=== PATIENT | female | born 1990 | race Caucasian/White ===

== ENCOUNTER → 2016-04-19 | Outpatient (CLI) | payer BC, OTHER ==
[2016-04-19 17:26] LABS: CHLORIDE,CL 106 mmol/L (98-110); SODIUM,NA 138 mmol/L (136-146)
== END ==
LOC: MW.CHRC 16:41
PROVIDERS: ATTEND Family Medicine
DX: K21.9 Gastro-esophageal reflux disease without esophagitis (principal); R14.0 Abdominal distension (gaseous)
CPT/HCPCS: 36415; 80053; 82150; 83690; 84443; 84703; 85025; 85652; 86140

== ENCOUNTER → 2016-05-02 | Outpatient (CLI) | payer BC, OTHER | LOC: MW.CHRC 14:22 | PROVIDERS: ATTEND Family Medicine | DX: N91.2 Amenorrhea, unspecified (principal) | CPT/HCPCS: 81025 ==

== ENCOUNTER → 2016-05-08 | Outpatient (CLI) | payer BC, OTHER ==
--- NOTE | 2016-05-08 16:36 | CT ---
CT of the abdomen and pelvis without contrast. HISTORY: Pain TECHNIQUE: Axial CT images were obtained of the abdomen and pelvis without contrast. Coronal and sag ittal reconstructions obtained. FINDINGS: The lung bases are clear, no pleural effusion. Tiny subpleural nodules noted bilaterally. There is a 1.3 cm hypodensity near the dome of the liver, likely representing a hemangioma comparing to a study dated 09/15/2015. The Spleen, adrenal glands, and pancreas appear unremarkable for noncont rast examination. The gallbladder is decompressed. There is no bulky retroperitoneal lymphadenopathy . No abdominal ascites. There are no calcifications noted within the kidneys or along the courses of the ureters bilaterally . The large and small bowel are normal in caliber without evidence of obstruction. The appendix appear s normal. There is no bulky pelvic lymphadenopathy. No free fluid. No free air. The urinary bladder appears normal. The visualized osseous structures appear normal. IMPRESSION: 1. No acute findings within the abdomen or pelvis. 2. Probable small hemangioma within the dome of the liver.
== END ==
LOC: MW.DI 15:01
PROVIDERS: ATTEND Family Medicine
DX: N91.2 Amenorrhea, unspecified (principal)
CPT/HCPCS: 74176; 74176-26

== ENCOUNTER 2017-10-10 18:23 | Emergency (ER) | payer BC, OTHER ==
[2017-10-10] MEDS ORDERED: Sodium Chloride 0.9% 1,000 ML IV ONE (19:03)
[2017-10-10] MEDS ORDERED: Ondansetron 4 MG/2 ML SDV IVPUSH ONE (19:04)
[2017-10-10] MEDS ORDERED: Sodium Chloride 0.9% 2.5 ML Syringe FLUSH PRN (19:04)
[2017-10-10] MEDS ORDERED: Sodium Chloride 0.9% 10 ML Syringe FLUSH PRN (19:04)
[2017-10-10] MEDS ORDERED: Ketorolac 30 MG/ML SDV IVPUSH ONE (19:04)
--- NOTE | 2017-10-10 19:13 | EDM.PDOC ---
ED HPI GENERAL MEDICAL PROBLEM - General Chief Complaint: Headache Stated Complaint: PT HAS MIGRAINE Time Seen by Provider: 10/10/17 19:09 Source of Information: Reports: Patient History Limitations: Reports: No Limitations - History of Present Illness INITIAL COMMENTS - FREE TEXT/NARRATIVE: HISTORY AND PHYSICAL: History of present illness: Patient is a 27-year-old female here with complaint of a migraine. Patient states that she had a headache yesterday and it was the end of the day progressed into severe migraine. Ports that she took a sumatriptan at 10 PM and then 2 more today without relief of her headache. She does have a history of migraines which have been progressively more frequent in the last 6 months. He sees Michela Keith at [facility]. She reports that she is very nauseous and light and noise really bothering her. She reports even small movements will make her headache worse. She denies any vomiting, fevers, chills, abdominal pain, weakness, chest pain, shortness of breath. Patients rates her pain as 10/10. Review of systems: As per history of present illness and below otherwise all systems reviewed and negative. Past medical history: As per history of present illness and as reviewed below otherwise noncontributory. Surgical history: As per history of present illness and as reviewed below otherwise noncontributory. Social history: No reported history of drug or alcohol abuse. Family history: As per history of present illness and as reviewed below otherwise noncontributory. Physical exam: General: Patient sitting comfortably in no acute distress and nontoxic appearing. Room is darkened and patient is wearing her sunglasses. HEENT: Atraumatic, normocephalic, pupils reactive, negative for conjunctival pallor or scleral icterus, mucous membranes moist, throat clear, neck supple, nontender, trachea midline. No meningeal signs. Lungs: Clear to auscultation, breath sounds equal bilaterally, chest nontender. Heart: S1S2, regular, negative for clicks, rubs, or overt murmur. Extremities: Atraumatic, negative for cords or calf pain. Neurovascular unremarkable. Neuro: Awake, alert, oriented. Cranial nerves II through XII unremarkable. Cerebellum unremarkable. Motor and sensory unremarkable throughout. Exam nonfocal. Notes: 1930 - patient rates her pain 3-4/10. 1999 - patient states her headache is a 3/10 and is comfortable to go home. Diagnostics: None Therapeutics: 1 L normal saline IV 30 mg Toradol IV 1 mg Zofran IV Prescriptions: Impression: Migraine Plan: 1. Drink plenty of fluids and take motrin or tylenol as needed. 2. Follow up with your primary care provider. 3. Return to ED as needed as discussed. Definitive disposition and diagnosis as appropriate pending reevaluation and review of above. 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 - Physical Exam Exam: See Below (see dictation) Course - Vital Signs Last Recorded V/S: Last Vital Signs Temp 36.4 C 10/10/17 18:23 Pulse 81 10/10/17 18:23 Resp 18 10/10/17 18:23 BP 102/55 L 10/10/17 18:23 Pulse Ox 98 10/10/17 18:23 - Orders/Labs/Meds Orders: Active Orders 24 hr Category Date Time Status Sodium Chloride 0.9% [Normal Saline] 1,000 ml Med 10/10/17 19:03 Active IV STAT Sodium Chloride 0.9% [Saline Flush] Med 10/10/17 19:04 Active 10 ml FLUSH ASDIRECTED PRN Sodium Chloride 0.9% [Saline Flush] Med 10/10/17 19:04 Active 2.5 ml FLUSH ASDIRECTED PRN Saline Lock Insert [OM.PC] Stat Oth 10/10/17 19:03 Ordered Medication Orders Sodium Chloride (Normal Saline) 1,000 mls @ 999 mls/hr IV STAT ONE Stop: 10/10/17 20:03 Last Admin: 10/10/17 19:16 Dose: 999 mls/hr Sodium Chloride (Saline Flush) 10 ml FLUSH ASDIRECTED PRN PRN Reason: Keep Vein Open Sodium Chloride (Saline Flush) 2.5 ml FLUSH ASDIRECTED PRN PRN Reason: Keep Vein Open Meds: Medications Generic Name Dose Route Start Last Admin Trade Name Freq PRN Reason Stop Dose Admin Sodium Chloride 1,000 mls @ 999 mls/hr 10/10/17 19:03 10/10/17 19:16 Normal Saline IV 10/10/17 20:03 999 mls/hr STAT ONE Administration Sodium Chloride 10 ml 10/10/17 19:04 Saline Flush FLUSH ASDIRECTED PRN Keep Vein Open Sodium Chloride 2.5 ml 10/10/17 19:04 Saline Flush FLUSH ASDIRECTED PRN Keep Vein Open Discontinued Medications Generic Name Dose Route Start Last Admin Trade Name Freq PRN Reason Stop Dose Admin Ketorolac Tromethamine 30 mg 10/10/17 19:04 10/10/17 19:16 Toradol IVPUSH 10/10/17 19:05 30 mg ONETIME ONE Administration Ondansetron HCl 4 mg 10/10/17 19:04 10/10/17 19:16 Zofran IVPUSH 10/10/17 19:05 4 mg ONETIME ONE Administration Departure - Departure Time of Disposition: 19:59 Disposition: Home, Self-Care 01 Condition: Good Clinical Impression: Migraine - Discharge Information Referrals: PCP,None [Primary Care Provider] - Forms: ED Department Discharge Additional Instructions: The following information is given to patients seen in the emergency department who are being discharged to home. This information is to outline your options for follow-up care. We provide all patients seen in our emergency department with a follow-up referral. The need for follow-up, as well as the timing and circumstances, are variable depending upon the specifics of your emergency department visit. If you don't have a primary care physician on staff, we will provide you with a referral. We always advise you to contact your personal physician following an emergency department visit to inform them of the circumstance of the visit and for follow-up with them and/or the need for any referrals to a consulting specialist. The emergency department will also refer you to a specialist when appropriate. This referral assures that you have the opportunity for follow-up care with a specialist. All of these measure are taken in an effort to provide you with optimal care, which includes your follow-up. Under all circumstances we always encourage you to contact your private physician who remains a resource for coordinating your care. When calling for follow-up care, please make the office aware that this follow-up is from your recent emergency room visit. If for any reason you are refused follow-up, please contact the [facility] Emergency Department at and asked to speak to the emergency department charge nurse. [address] [address] 1. Drink plenty of fluids and take motrin or tylenol as needed. 2. Follow up with your primary care provider. 3. Return to ED as needed as discussed. - My Orders Last 24 Hours: My Active Orders 10/10/17 19:03 Sodium Chloride 0.9% [Normal Saline] 1,000 ml IV STAT Saline Lock Insert [OM.PC] Stat 10/10/17 19:04 Sodium Chloride 0.9% [Saline Flush] 10 ml FLUSH ASDIRECTED PRN Sodium Chloride 0.9% [Saline Flush] 2.5 ml FLUSH ASDIRECTED PRN - Assessment/Plan Last 24 Hours: My Active Orders 10/10/17 19:03 Sodium Chloride 0.9% [Normal Saline] 1,000 ml IV STAT Saline Lock Insert [OM.PC] Stat 10/10/17 19:04 Sodium Chloride 0.9% [Saline Flush] 10 ml FLUSH ASDIRECTED PRN Sodium Chloride 0.9% [Saline Flush] 2.5 ml FLUSH ASDIRECTED PRN
[2017-10-10 20:08] VITALS: BP 104/68
== END 2017-10-10 20:09 | disposition home or self-care (01) ==
LOC: MW.ED 18:23
DX: G43.909 Migraine, unspecified, not intractable, without status migrainosus (principal)
CPT/HCPCS: 96361; 96374; 96375; 99283; J1885; J2405; J7040

== ENCOUNTER 2018-07-20 09:10 | Emergency (ER) | payer SELFPAY ==
[2018-07-20] MEDS ORDERED: Sodium Chloride 0.9% 10 ML Syringe FLUSH PRN (09:38)
[2018-07-20] MEDS ORDERED: Sodium Chloride 0.9% 2.5 ML Syringe FLUSH PRN (09:38)
[2018-07-20] MEDS ORDERED: Sodium Chloride 0.9% 1,000 ML IV ONE (09:40)
[2018-07-20] MEDS ORDERED: Ketorolac 30 MG/ML SDV IVPUSH ONE (09:59)
[2018-07-20 10:29] LABS: CHLORIDE,CL 104 mmol/L (98-107); SODIUM,NA 137 mmol/L (136-145)
--- NOTE | 2018-07-20 10:57 | EDM.PDOC ---
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 She states she feels physically and emotionally exhausted. Patient has had a similar episode when she was 13 years old and needed multiple blood transfusions. She did have a miscarriage in January and feels that her more hormones have been off since. Review of systems: As per history of present illness and below otherwise all systems reviewed and negative. Past medical history: As per history of present illness and as reviewed below otherwise noncontributory. Surgical history: As per history of present illness and as reviewed below otherwise noncontributory. Social history: No reported history of drug or alcohol abuse. Family history: As per history of present illness and as reviewed below otherwise noncontributory. Physical exam: General: Well developed, well nourished in NAD HEENT: Atraumatic, normocephalic, pupils reactive, negative for conjunctival pallor or scleral icterus, mucous membranes moist, throat clear, neck supple, nontender, trachea midline. Lungs: Clear to auscultation, breath sounds equal bilaterally, chest nontender. Heart: S1S2, regular, negative for clicks, rubs, or JVD. Abdomen: NABS, Soft, nondistended, nontender. Negative for masses or hepatosplenomegaly. Negative for costovertebral tenderness. Pelvis: Stable nontender. Genitourinary: Pelvic exam shows minimal blood in the vaginal vault no blood clot located in the cervical os and nontender Rectal: Deferred. Extremities: Atraumatic, negative for cords or calf pain. Neurovascular unremarkable. Neuro: Awake, alert, oriented. Cranial nerves II through XII unremarkable. Cerebellum unremarkable. Motor and sensory unremarkable throughout. Exam nonfocal. Skin:warm and dry Diagnostics: CBC, chemistry, test negative Therapeutics: Dehydrated ED Course: Stable Impression: Dysfunctional uterine bleeding Prescriptions: None Plan: Follow-up with women's health Definitive disposition and diagnosis as appropriate pending reevaluation and review of above. 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: Reports: Endometriosis, , Spontaneous Musculoskeletal History: Reports: Fracture Other Musculoskeletal History: hx fx arm as a child Neurological History: Reports: Migraines Psychiatric History: Reports: Anxiety, Depression Hematologic History: Reports: Anemia, Blood Transfusion(s) - Infectious Disease History Infectious Disease History: Reports: Chicken Pox - Past Surgical History Female Surgical History: Reports: Section, D&C Social & Family History - Family History Family Medical History: Noncontributory - Tobacco Use Smoking Status *Q: Light Tobacco Smoker Years of Tobacco use: 15 Packs/Tins Daily: 0.1 - Caffeine Use Caffeine Use: Reports: None - Recreational Drug Use Recreational Drug Use: No ED ROS GENERAL - Review of Systems Review Of Systems: See Below ED EXAM, RENAL/ - Physical Exam Exam: See Below Course - Vital Signs Last Recorded V/S: Last Vital Signs Temp 97.4 F 07/20/18 09:16 Pulse 98 07/20/18 09:16 Resp 16 07/20/18 09:16 BP 111/65 07/20/18 09:16 Pulse Ox 97 07/20/18 09:16 - Orders/Labs/Meds Orders: Active Orders 24 hr Category Date Time Status EKG Documentation Completion [RC] STAT Care 07/20/18 09:38 Inactive TYPE AND SCREEN [BBK] Stat Lab 07/20/18 10:05 Received Sodium Chloride 0.9% [Saline Flush] Med 07/20/18 09:38 Active 10 ml FLUSH ASDIRECTED PRN Sodium Chloride 0.9% [Saline Flush] Med 07/20/18 09:38 Active 2.5 ml FLUSH ASDIRECTED PRN Saline Lock Insert [OM.PC] Stat Oth 07/20/18 09:38 Ordered Medication Orders Sodium Chloride (Saline Flush) 10 ml FLUSH ASDIRECTED PRN PRN Reason: Keep Vein Open Last Admin: 07/20/18 09:52 Dose: 10 ml Sodium Chloride (Saline Flush) 2.5 ml FLUSH ASDIRECTED PRN PRN Reason: Keep Vein Open Last Admin: 07/20/18 09:52 Dose: 2.5 ml Labs: Laboratory Tests 07/20/18 07/20/18 07/20/18 Range/Units 09:50 09:50 09:50 WBC 9.24 (4.0-11.0) K/uL RBC 4.11 L (4.30-5.90) M/uL Hgb 12.1 (12.0-16.0) g/dL Hct 36.0 (36.0-46.0) % MCV 87.6 (80.0-98.0) fL MCH 29.4 (27.0-32.0) pg MCHC 33.6 (31.0-37.0) g/dL RDW Std Deviation 39.2 (28.0-62.0) fl RDW Coeff of Ashli 12 (11.0-15.0) % Plt Count 229 (150-400) K/uL MPV 10.80 (7.40-12.00) fL Neut % (Auto) 61.5 (48.0-80.0) % Lymph % (Auto) 27.6 (16.0-40.0) % [place] % (Auto) 9.7 (0.0-15.0) % Eos % (Auto) 0.9 (0.0-7.0) % Baso % (Auto) 0.3 (0.0-1.5) % Neut # (Auto) 5.7 (1.4-5.7) K/uL Lymph # (Auto) 2.6 H (0.6-2.4) K/uL [place] # (Auto) 0.9 H (0.0-0.8) K/uL Eos # (Auto) 0.1 (0.0-0.7) K/uL Baso # (Auto) 0.0 (0.0-0.1) K/uL Nucleated RBC % 0.0 /100WBC Nucleated RBCs # 0 K/uL Sodium 137 (136-145) mmol/L Potassium 3.6 (3.5-5.1) mmol/L Chloride 104 (98-107) mmol/L Carbon Dioxide 25.6 (21.0-32.0) mmol/L BUN 7 (7.0-18.0) mg/dL Creatinine 0.7 (0.6-1.0) mg/dL Est Cr Clr Drug Dosing 105.74 mL/min Estimated GFR (MDRD) > 60.0 ml/min Glucose 105 (74-106) mg/dL Calcium 8.6 (8.5-10.1) mg/dL Total Bilirubin 0.5 (0.2-1.0) mg/dL AST 16 (15-37) IU/L ALT 51 (14-63) IU/L Alkaline Phosphatase 46 (46-116) U/L Total Protein 6.8 (6.4-8.2) g/dL Albumin 3.9 (3.4-5.0) g/dL Globulin 2.9 (2.6-4.0) g/dL Albumin/Globulin Ratio 1.3 (0.9-1.6) HCG, Qual NEGATIVE (NEG) Meds: Medications Generic Name Dose Route Start Last Admin Trade Name Freq PRN Reason Stop Dose Admin Sodium Chloride 10 ml 07/20/18 09:38 07/20/18 09:52 Saline Flush FLUSH 10 ml ASDIRECTED PRN Administration Keep Vein Open Sodium Chloride 2.5 ml 07/20/18 09:38 07/20/18 09:52 Saline Flush FLUSH 2.5 ml ASDIRECTED PRN Administration Keep Vein Open Discontinued Medications Generic Name Dose Route Start Last Admin Trade Name Freq PRN Reason Stop Dose Admin Sodium Chloride 1,000 mls @ 999 mls/hr 07/20/18 09:40 07/20/18 09:52 Normal Saline IV 07/20/18 10:40 999 mls/hr .Bolus ONE Administration Ketorolac Tromethamine 30 mg 07/20/18 09:59 07/20/18 10:14 Toradol IVPUSH 07/20/18 10:00 30 mg ONETIME ONE Administration Departure - Departure Time of Disposition: 10:56 Disposition: Home, Self-Care 01 Condition: Good Clinical Impression: Dysfunctional uterine bleeding Clinical Impression: (Ruled Out): Dysfunctional or functional uterine hemorrhage - Discharge Information *PRESCRIPTION DRUG MONITORING PROGRAM REVIEWED*: No *COPY OF PRESCRIPTION DRUG MONITORING REPORT IN PATIENT MAIA: No Referrals: PCP,None [Primary Care Provider] - Additional Instructions: The following information is given to patients seen in the emergency department who are being discharged to home. This information is to outline your options for follow-up care. We provide all patients seen in our emergency department with a follow-up referral. The need for follow-up, as well as the timing and circumstances, are variable depending upon the specifics of your emergency department visit. If you don't have a primary care physician on staff, we will provide you with a referral. We always advise you to contact your personal physician following an emergency department visit to inform them of the circumstance of the visit and for follow-up with them and/or the need for any referrals to a consulting specialist. The emergency department will also refer you to a specialist when appropriate. This referral assures that you have the opportunity for follow-up care with a specialist. All of these measure are taken in an effort to provide you with optimal care, which includes your follow-up. Under all circumstances we always encourage you to contact your private physician who remains a resource for coordinating your care. When calling for follow-up care, please make the office aware that this follow-up is from your recent emergency room visit. If for any reason you are refused follow-up, please contact the [facility] Emergency Department at and asked to speak to the emergency department charge nurse. [facility] - [facility] [address] [place] [phone] - My Orders Last 24 Hours: My Active Orders 07/20/18 09:38 EKG Documentation Completion [RC] STAT Sodium Chloride 0.9% [Saline Flush] 10 ml FLUSH ASDIRECTED PRN Sodium Chloride 0.9% [Saline Flush] 2.5 ml FLUSH ASDIRECTED PRN Saline Lock Insert [OM.PC] Stat 07/20/18 10:05 TYPE AND SCREEN [BBK] Stat - Assessment/Plan Last 24 Hours: My Active Orders 07/20/18 09:38 EKG Documentation Completion [RC] STAT Sodium Chloride 0.9% [Saline Flush] 10 ml FLUSH ASDIRECTED PRN Sodium Chloride 0.9% [Saline Flush] 2.5 ml FLUSH ASDIRECTED PRN Saline Lock Insert [OM.PC] Stat 07/20/18 10:05 TYPE AND SCREEN [BBK] Stat
[2018-07-20 12:15] VITALS: BP 121/72
== END 2018-07-20 11:09 | disposition home or self-care (01) ==
LOC: MW.ED 09:10
DX: N93.8 Other specified abnormal uterine and vaginal bleeding (principal); F41.9 Anxiety disorder, unspecified; F32.9 Major depressive disorder, single episode, unspecified; F17.210 Nicotine dependence, cigarettes, uncomplicated; Z79.899 Other long term (current) drug therapy
CPT/HCPCS: 80053; 84703; 85025; 86850; 86900; 86901; 96361; 96374; 99284; J1885; J7040

== ENCOUNTER 2020-01-16 06:13 | Emergency (ER) | payer BC, OTHER ==
[2020-01-16] MEDS ORDERED: Orphenadrine 60 MG/2 ML Inj IM ONE (06:33)
[2020-01-16] MEDS ORDERED: Ketorolac 30 MG/ML SDV IM ONE (06:33)
[2020-01-16] MEDS ORDERED: traMADol 50 MG Tab PO ONE (06:34)
--- NOTE | 2020-01-16 06:46 | EDM.PDOC ---
ED HPI GENERAL MEDICAL PROBLEM - General Chief Complaint: Upper Extremity Injury/Pain Stated Complaint: RT SHOULDER HURTS Time Seen by Provider: 01/16/20 06:30 - History of Present Illness INITIAL COMMENTS - FREE TEXT/NARRATIVE: HISTORY AND PHYSICAL: History of present illness: This is a 29-year-old female who presents ER today complaining of pain to her right shoulder, right shoulder blade, radiating down her right arm that started around 3 in the morning when she woke up. Patient reports no recent trauma or fall. Patient denies any weakness or numbness to her hand. Patient denies any recent fevers, shakes, chills, nausea, vomiting, diarrhea, dysuria, frequency, urgency. Patient reports that she when she went to sleep last night she was not having any discomfort. Patient denies any shortness of breath or sharp chest pain. Patient denies any calf pain or tenderness. Patient denies any lower extremity swelling. Patient denies any hormonal use. Patient denies any history of DVT/PE. Patient reports the pain increases with any movement of her arm and shoulder. Patient denies any history of hypertension, diabetes, liver, lung, kidney problems. Patient reports that she has had D&C in the past. Patient has any tobacco, alcohol, drug use. Patient has no known drug allergies. Patient reports she has no history of fibromyalgia. Review of systems: As per history of present illness and below otherwise all systems reviewed and negative. Past medical history: As per history of present illness and as reviewed below otherwise noncontributory. Surgical history: As per history of present illness and as reviewed below otherwise noncontributory. Social history: No reported history of drug or alcohol abuse. Family history: As per history of present illness and as reviewed below otherwise noncontri butory. Physical exam: Constitutional: Patient is oriented to person, place, and time. Appears well- developed and well-nourished. No distress. HEENT: Moist mucous membranes Head: Normocephalic and atraumatic Eyes: Right eye exhibits no discharge. Left eye exhibits no discharge. No scleral icterus Neck: Normal range of motion. No tracheal deviation present. Cardiovascular: Normal rate and regular rhythm. Pulmonary: Effort normal, no respiratory distress. Abdominal: No distention Musculoskeletal: Normal range of motion Neurologic: Alert and oriented to person, place and time. Skin: [place], warm and dry. Psychiatric: Normal mood and affect. Behavior is normal. Judgment and thought content normal. Nursing note and vital signs have been reviewed Patient's ER physical exam is significant for tenderness to palpation to her right shoulder with any slight range of motion to her shoulder. Patient has pain to palpation at the scapula and on palpation of the muscles around the scapula she does have a lot of tenderness and spasms in the muscles. Patient is neurovascularly intact. Patient has 5 out of 5 motor in her upper extremities bilaterally. Patient has good sensation. Patient's pulses are bounding and equal bilaterally. Patient has excellent capillary refill. Patient has no evidence of arterial clot or vascular insufficiency on exam. Diagnostics: X-ray of right shoulder: No acute fracture or dislocation identified as interpreted by ER physician Dr. [employer]: Norflex IM, Toradol IM, Ultram p.o. Assessment and plan: This is a 29-year-old female with no significant past medical history presents ER today complaining of right shoulder pain that woke her from sleep. Patient reports she has significant pain with range of motion of her right shoulder. Pain appears to be musculoskeletal/mechanical in nature. Pain does not appear to be consistent with PE. Patient will be given Norflex, Toradol, Ultram in the ED and will be discharged home with a prescription for Flexeril, ibuprofen, Ultram to assist her with her pain. Reports that she will call her to come pick her up. Reassessment at the time of disposition demonstrates that the patient is in no acute distress. The patient has remained stable throughout the entire ED visit and is without objective evidence for acute process requiring urgent intervention or hospitalization. The patient is stable for discharge, counseling is provided as documented above, discussed symptomatic treatment and specific conditions for return. I have spoken with the patient/caregiver and discussed todays findings, in addition to providing specific details for the plan of care. Questions are answered and there is agreement with the plan. Definitive disposition and diagnosis as appropriate pending reevaluation and review of above. 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: Reports: Endometriosis, , Spontaneous Musculoskeletal History: Reports: Fracture, Other (See Below) Other Musculoskeletal History: hx fx arm as a child, left shoulder rotator cuff problems Neurological History: Reports: Migraines Psychiatric History: Reports: Anxiety, Depression Hematologic History: Reports: Anemia, Blood Transfusion(s) - Infectious Disease History Infectious Disease History: Reports: Chicken Pox - Past Surgical History Head Surgeries/Procedures: Reports: None HEENT Surgical History: Reports: Tonsillectomy Female Surgical History: Reports: Section, D&C Other Female Surgeries/Procedures: Miscarriage in 2008 and 2017 Social & Family History - Family History Family Medical History: No Pertinent Family History - Tobacco Use Tobacco Use Status *Q: Never Tobacco User Second Hand Smoke Exposure: No - Caffeine Use Caffeine Use: Reports: None - Recreational Drug Use Recreational Drug Use: No Review of Systems - Review of Systems Review Of Systems: See Below ED EXAM, GENERAL - Physical Exam Exam: See Below Course - Vital Signs Last Recorded V/S: Last Vital Signs Temp 97.3 F 01/16/20 07:41 Pulse 65 01/16/20 07:41 Resp 16 01/16/20 07:41 BP 103/31 L 01/16/20 07:41 Pulse Ox 100 01/16/20 07:41 - Orders/Labs/Meds Meds: Medications Discontinued Medications Generic Name Dose Route Start Last Admin Trade Name Freq PRN Reason Stop Dose Admin Ketorolac Tromethamine 30 mg 01/16/20 06:33 01/16/20 06:56 Toradol IM 01/16/20 06:34 30 mg ONETIME ONE Administration Orphenadrine Citrate 60 mg 01/16/20 06:33 01/16/20 06:56 Norflex IM 01/16/20 06:34 60 mg ONETIME ONE Administration Tramadol HCl 50 mg 01/16/20 06:34 01/16/20 06:54 Ultram PO 01/16/20 06:35 50 mg ONETIME ONE Administration Departure - Departure Time of Disposition: 06:46 Disposition: Home, Self-Care 01 Condition: Good Clinical Impression: Right shoulder pain - Discharge Information Prescriptions: Cyclobenzaprine [Flexeril] 10 mg PO TID PRN #20 tab PRN Reason: Muscle Spasm Ibuprofen 600 mg PO Q6HR PRN #30 tablet PRN Reason: Pain traMADol [Ultram] 50 mg PO Q6H PRN #12 tab PRN Reason: Pain Instructions: Shoulder Pain Referrals: PCP,None [Primary Care Provider] - Forms: ED Department Discharge Additional Instructions: You were seen and evaluated in the ER today secondary to pain in your right shoulder. The pain appears to be musculoskeletal in nature. You have been given an injection of Toradol and Norflex in the ED as well as a Ultram pill to help you with your pain and discomfort. You will be discharged home with a prescription for: Flexeril (which is a muscle relaxant) 10 mg to take every 8 hours as needed for pain and muscle spasms. Ibuprofen (which is an anti-inflammatory medication) 600 mg to take every 6-8 hours as needed for pain. Ultram (which is the pain medicine) 50 mg to take every 6 hours as needed for pain. Please continue using your right arm sling to help you with pain and discomfort. If your pain persists for more than 1 to 2 days please see your family doctor or call her orthopedic doctor for appointment for follow-up. [facility] - [facility] [address], [address] [place] [address] The following information is given to patients seen in the emergency department who are being discharged to home. This information is to outline your options for follow-up care. We provide all patients seen in our emergency department with a follow-up referral. The need for follow-up, as well as the timing and circumstances, are variable depending upon the specifics of your emergency department visit. If you don't have a primary care physician on staff, we will provide you with a referral. We always advise you to contact your personal physician following an emergency department visit to inform them of the circumstance of the visit and for follow-up with them and/or the need for any referrals to a consulting specialist. The emergency department will also refer you to a specialist when appropriate. This referral assures that you have the opportunity for follow-up care with a specialist. All of these measure are taken in an effort to provide you with optimal care, which includes your follow-up. Under all circumstances we always encourage you to contact your private physician who remains a resource for coordinating your care. When calling for follow-up care, please make the office aware that this follow-up is from your recent emergency room visit. If for any reason you are refused follow-up, please contact the [facility] Emergency Department at and asked to speak to the emergency department charge nurse. [facility] [address] [place] [id number] [facility] [address] [place] [id number] Sepsis Event Note (ED) - Evaluation Sepsis Screening Result: No Definite Risk
--- NOTE | 2020-01-16 07:24 | CR ---
INDICATION: Right shoulder pain COMPARISON: none TECHNIQUE: Three-view right shoulder FINDINGS: The AC joint and glenohumeral joint are anatomically aligned. There is no evidence of fracture, erosion or intrinsic bone lesion. The soft tissues appear normal. IMPRESSION: Negative right shoulder. Dictated by Yung Hanna MD @ Jan 16 2020 7:22AM Signed by Dr. Yung Hanna @ Jan 16 2020 7:23AM
[2020-01-16 07:42] VITALS: BP 103/31; PULSE 65
== END 2020-01-16 07:42 | disposition home or self-care (01) ==
LOC: MW.ED 06:13
DX: M25.511 Pain in right shoulder (principal)
CPT/HCPCS: 73030; 96372; 99283; A9270; J1885; J2360

== ENCOUNTER 2021-07-05 18:05 | Emergency (ER) | payer BC, MEDICAID ==
[2021-07-05 19:12] VITALS: BP 101/48; PULSE 82
== END 2021-07-05 19:10 | disposition home or self-care (01) ==
LOC: MW.ED 18:05
DX: J34.0 Abscess, furuncle and carbuncle of nose (principal)
CPT/HCPCS: 99283

== ENCOUNTER 2021-11-25 20:17 | Emergency (ER) | payer BC ==
[2021-11-25] MEDS ORDERED: Sodium Chloride 0.9% 10 ML Syringe FLUSH PRN (21:01)
[2021-11-25] MEDS: Sodium Chloride 0.9% 2.5 ML Syringe FLUSH PRN (21:46)
[2021-11-25] MEDS: Ketorolac 30 MG/ML SDV IVPUSH ONE (21:47)
[2021-11-25 22:07] LABS: BLOOD UREA NITROGEN,BUN 12 mg/dL (7.0-18.0); CARBON DIOXIDE,CO2 26.5 mmol/L (21.0-32.0); CHLORIDE,CL 103 mmol/L (98-107); GLUCOSE RANDOM 88 mg/dL (74-106); SODIUM,NA 139 mmol/L (136-145)
[2021-11-25 22:08] LABS: ESTIMATED GFR 87 mL/min (>60)
[2021-11-25 22:28] VITALS: BP 140/67; PULSE 87
== END 2021-11-25 22:45 | disposition home or self-care (01) ==
LOC: MW.ED 20:17
DX: R07.89 Other chest pain (principal); Z79.899 Other long term (current) drug therapy
CPT/HCPCS: 36415; 71045; 80053; 84484; 85025; 96374; 99285; J1885; 93010; 99283

== ENCOUNTER 2021-12-23 02:01 | Emergency (ER) | payer BC ==
[2021-12-23] MEDS ORDERED: Ibuprofen 600 MG Tab PO ONE (03:08)
[2021-12-23 03:35] VITALS: BP 112/62; PULSE 92
== END 2021-12-23 03:34 | disposition home or self-care (01) ==
LOC: MW.ED 02:01
DX: S01.01XA Laceration without foreign body of scalp, initial encounter (principal); Y04.0XXA Assault by unarmed brawl or fight, initial encounter; Y92.89 Other specified places as the place of occurrence of the external cause
CPT/HCPCS: 12001; 70450; 81025; 99284; A9270